=== PATIENT | male | born 1975 | race Caucasian/White ===

== ENCOUNTER 2020-02-08 10:01 | Emergency (ER) | payer BC ==
[~2020-02-08] VITALS: Ht 167.6 cm; Wt 99.3 kg
[2020-02-08 10:16] VITALS: Ht 167.6 cm; Wt 99.3 kg
[2020-02-08 12:50] VITALS: BP 133/86
== END 2020-02-08 12:50 | disposition home or self-care (01) ==
LOC: ED 10:01
DX: S46.911A Strain of unspecified muscle, fascia and tendon at shoulder and upper arm level, right arm, initial encounter (principal); X50.9XXA Other and unspecified overexertion or strenuous movements or postures, initial encounter; Y93.89 Activity, other specified; Y92.89 Other specified places as the place of occurrence of the external cause; Y99.8 Other external cause status
CPT/HCPCS: J1885

== ENCOUNTER 2020-02-09 20:42 | Inpatient (IN) | payer BC ==
[~2020-02-09] VITALS: Ht 167.6 cm; Wt 100.0 kg
[2020-02-09 21:25] VITALS: Ht 167.6 cm; Wt 100.0 kg
--- NOTE | 2020-02-09 22:58 | NUR ---
PATIENT ARRIVED TO ED ROOM ORTHO FROM TRIAGE FOR C/O FEVER AND RIGHT SHOULDER PAIN. PATIENT SAID THAT HE WAS "HERE YESTERDAY FOR THE SAME ISSUE." PATIENT EXPLAINED THAT HE WAS STILL IN PERSISTENT PAIN 10/10 IN RIGHT SHOULDER. PATIENT DENIES SHORTNESS OF BREATH OR DIZZINESS. DR. RANGEL WAS AT THE BEDSIDE TO MSE PATIENT. WILL CONTINUE TO MONITOR. CALL LIGHT WITHIN REACH.
[2020-02-09 23:16] LABS: RED CELL DISTRIBUTION WIDTH 12.3 % (11.5-14.5)
[2020-02-09 23:18] LABS: BASOPHIL % 0 % (0-2); PLATELET COUNT 129 x10^3mcL (130-400)
--- NOTE | 2020-02-09 23:36 | NUR ---
PATIENT EXPLAINED THAT HE WAS AT WORK WHEN HE DEVELOPED RIGHT SHOULDER PAIN. PATIENT EXPLAINED THAT [place] [facility] [place] "[THEY] SAID THAT IT WAS JUST A SPRAIN, BUT IT DOES NOT FEEL LIKE A SPRAIN SINCE IT CONTINUES TO HURT."
[2020-02-09 23:39] LABS: CALCIUM 8.1 mg/dL (8.5-10.1); CARBON DIOXIDE 25.9 mmol/L (21-32); CHLORIDE SERUM 98 mmol/L (98-107); CREATININE SERUM 0.9 mg/dL (0.7-1.3); GFR1 > 60 mL/min; GLUCOSE SERUM 124 mg/dL (74-106); POTASSIUM SERUM 3.5 mmol/L (3.5-5.1); SODIUM SERUM 133 mmol/L (136-145)
[2020-02-09 23:44] LABS: ALBUMIN 3.5 g/dL (3.4-5.0); ALKALINE PHOSPHATASE 86 U/L (46-116); ALT/SGPT 63 U/L (16-63); AST/SGOT 43 U/L (15-37); BILIRUBIN TOTAL 1.36 mg/dL (0.20-1.00); TOTAL PROTEIN, SERUM 7.4 g/dL (6.4-8.2)
[2020-02-09 23:59] LABS: C REACTIVE PROTEIN 22.7 mg/dL (<=0.9)
[2020-02-10 00:09] LABS: ERYTHROCYTE SED RATE 48 mm/hr (0-15)
[2020-02-10 03:22] LABS: UA SPECIFIC GRAVITY 1.015 (1.005-1.035); microscopic required? YES; urine erythrocyte 1+ (NEGATIVE)
--- NOTE | 2020-02-10 03:50 | NUR ---
PATIENT RESTING AT THE MOMENT. PATIENT WAS ABLE TO TOLERATE CT SCAN RIGHT SHOULDER EARLIER WITH FENTANYL X1 ADMINISTERED. VITAL SIGNS STABLE. TEMPERATURE SLIGHTLY ELEVATED. COOLING MEASURES PROVIDED.
--- NOTE | 2020-02-10 04:06 | NUR ---
PATIENT C/O HEADACHE. DR. WRIGHT MADE AWARE. WILL CONTINUE TO MONITOR.
--- NOTE | 2020-02-10 06:09 | NUR ---
PATIENT ORAL TEMPERATURE [address] RANGEL MADE AWARE. NEW ORDERS FOR TYLENOL PO TO BE NOTED AND CARRIED OUT.
--- NOTE | 2020-02-10 07:36 | NUR ---
REPORT GIVEN TO YUE MONSIVAIS FOR CONTINUITY OF CARE. PATIENT IN STABLE CONDITION. PILLOWS GIVEN AND REPOSITIONED PATIENT. PATIENT HAS ANTIBIOTIC RUNNING ORDERED. PATIENT AWARE OF BEING ADMITTED TO THE HOSPITAL FOR FURTHER EVALUATION AND TREATMENTS.
--- NOTE | 2020-02-10 07:45 | NUR ---
PT SITTIN IN POSTION OF COMFORT. PT DENIES ANY PAIN AT THIS TIME. PT IS AAOX4, NO DISTRESS NOTED, RESP E/U. LUNG CTA, IV ANTIBIOTICS INFUSING. PT ON FULL CM, NSR NOTED. WILL CONT TO MONITOR.
--- NOTE | 2020-02-10 09:31 | NUR ---
SPOKE WITH RADIOLOGIST DR WHARTON REGARDING ORDER FOR "C/F ASPIRATION RIGHT SHOULDER." PLACED CALL TO DR Derrick SHERMAN FOR DR Alva, BUT PER [facility] HE IS NOT FOLDER TAPER OPERATOR AND HAS NOT SEEN THE PATIENT. SPOKE WITH DR BURROUGHS IN ER WHO REQUESTED THE ORDERED ASPIRATION BE CANCELLED. AWAITING ADMITTING PHYSICIAN TO DETERMINE PLAN OF CARE MOVING FORWARD. NOTIFIED [facility] DR Alva AND DR Brain OVALLES.
--- NOTE | 2020-02-10 10:00 | NUR ---
PT REPORTS GENERALIZED HEADACHE AT THIS TIME. STATED 11/05 PAIN. PT IS AAOX4, NO DISTRESS NOTED, RESP E/U.
--- NOTE | 2020-02-10 11:30 | NUR ---
PT AMBULATED TO RESTROOM AND BACK TO [facility] WITH A STEADY GAIT WIHOUT INCIDIENT.
--- NOTE | 2020-02-10 12:06 | NUR ---
AT THE BEDSIDE.
--- NOTE | 2020-02-10 12:14 | NUR ---
PT REPORTED 8/10 BACK/RIGHT SHOULDER PAIN AT THIS TIME. MEDICATED PT PER MD ORDERS, SEE EMAR. PT VERABLIZED UNDERSTANDING OF MEDICATION TEACHING.
--- NOTE | 2020-02-10 12:50 | NUR ---
DROPPED OFF PT'S CELL PHONE CHARGE TO ME IN THE LOBBY. GAVE EARTH SCIENCE LABORATORY TECHNICIAN TO THE PT.
--- NOTE | 2020-02-10 13:00 | NUR ---
PT REPORTS IMPROVED BACK/RIGHT SHOULDER PAIN, STATED PAIN IS 6/10 AT THIS TIME.
--- NOTE | 2020-02-10 13:55 | NUR ---
PT AMBULATED TO RESTROOM AND BACK TO [facility] WITH A STEADY GAIT.
--- NOTE | 2020-02-10 15:41 | NUR ---
PT IN POSITION OF COMFORT IN ER CATHY LAYIN IN [place]'S, POSITIONED PILLOWS UNDER PT FOR COMFORT. PT HAS NO COMPLAINTS AT THIS TIME. PT IS AAOX4, NO DISTRESS NOTED, RESP E/U, SKIN INTACT PINK WARM AND DRY. IV FLUSHED AND PATENT, NO INFILTRATION OR PAIN NOTED AT THIS TIME. WILL CONT TO MONIOTR.
--- NOTE | 2020-02-10 18:25 | NUR ---
MEDICATED WITH TYLENOL PO PER MD ORDERS, SEE EMAR. FOR FEVER 101.1 ORALLY. WILL REASSES.
--- NOTE | 2020-02-10 18:35 | NUR ---
SURGEON AT THE BEDSIDE DISCUSSING PLAN OF CARE TO PATIENT. PER SURGEON DR SALOMON, VERBAL OK FOR PT OK TO EAT UNTIL MIDNIGHT TONIGHT.
--- NOTE | 2020-02-10 18:42 | NUR ---
REPORT GIVEN TO SOPHY TURNER ON [facility] WHO WILL ASSUME FURTHER CARE OF THIS PT.
--- NOTE | 2020-02-10 18:55 | NUR ---
RECEIVED PT FROM ED VIA CATHY, CAME IN DUE TO RIGHT SHOULDER PAIN X3 DAYS. AAOX4. C/O 5/10 HEADACHE. DENIES DIZZINESS. ABLE TO FOLLOW COMMANDS. NO SOB NOTED, LUNG SOUNDS CTA, O2 SAT=98%. DENIES CHEST PAIN/PRESSURE. DENIES ABDOMINAL DISCOMFORT. LIMITED ROM ON RUE. NOTED RIGHT SHOULDER SWELLING, WARM TO TOUCH, BUT NO ERYTHEMA/DRAINAGE. STATED THAT HE HAS 10/10 PAIN ON THE RIGHT SHOULDER WORSE ON MOVEMENT. RECEIVED PT FROM ED W/ VANCOMYCIN ONGOING. SIDE RAILS UPX2. CALL LIGHT ON REACH. ENDORSED TO INCOMING NURSE JEY FOR CONTINUITY OF CARE
--- NOTE | 2020-02-10 19:15 | NUR ---
PT RECEIVED FROM RESOURCE NURSE. PT A/O X4, ABLE TO MAKE NEEDS KNOWN. MED-SURG, DENIES ANY CP/PRESSURE. PULSES PALPABLE, RT SHOULDER SWELLING NOTED. BREATHING IS EVEN AND UNLABORED ON RA, NO RESP DISTRESS NOTED. ABD SOFT AND ROUND, DENIES ANY N/V. VOIDS FREELY, URINALY AT BEDSIDE. PT NOTED W/ RT SHOULDER WEAKNESS. SKIN IS WARM AND DRY, INTACT. PT REPORTS MILD HEADACHE AND RT SHOULDER PAIN. IV TO LAC, PATENT AND INTACT, SITE WNL. PT WILL BE NPO AFTER MIDNIGHT FOR POSSIBLE PROCEDURE. NO ACUTE DISTRSES NOTED. BED IN LOWEST SETTING, SIDE RAILS UP X2, CALL LIGHT WITHIN REACH. WILL CONT TO MONITOR.
[2020-02-10 19:19] VITALS: BP 142/78
--- NOTE | 2020-02-10 21:10 | NUR ---
PT C/O 5/10 RIGHT SHOULDER AND HEADACHE PAIN, PRN NORCO GIVEN PER EMAR. REASSESSED TEMP AFTER PRN TYLENOL GIVEN IN ED-100.0, COOLING MEASURES MAINTAINED. NO ACUTE DISTRESS NOTED. WILL CONT TO MONITOR.
[2020-02-11 04:52] VITALS: BP 124/74
--- NOTE | 2020-02-11 06:01 | NUR ---
CARE ASSUMED FROM YUE KHANNA. PT RESTING COMFORTABLY IN BED WITH EYES CLOSED. EVEN AND UNLABORED RESPIRATIONS ON RA. MEDSURG PT. IV PATENT AND INTACT RUNNING ANTIBIOTICS PER EMAR. NPO EXCEPT MEDICATIONS IN PLACE. BED IN LOWEST POSITION. SIDE RAILS UPX2. CALL LIGHT WITHIN REACH. WILL CONTINUE TO MONITOR.
--- NOTE | 2020-02-11 06:01 | NUR ---
PT'S TEMP-102, PRN TYLENOL GIVEN PER EMAR. NO ACUTE DISTRESS NOTED. CONT OF CARE GIVEN TO CHRIS TURNER. ALL QUESTIONS AND CONCERNS ADDRESSED.
--- NOTE | 2020-02-11 07:18 | NUR ---
CARE ENDORSED TO DAYSHIFT RN. PT RESTING COMFORTABLY IN BED WITH EYES CLOSED. NO ACUTE DISTRESS NOTED. IVPB RUNNING PER EMAR. ALL QUESTIONS AND CONCERNED ANSWERED.
[2020-02-11 07:30] LABS: BASOPHIL % 0.3 % (0-2); PLATELET COUNT 141 x10^3mcL (130-400); RED CELL DISTRIBUTION WIDTH 12.1 % (11.5-14.5)
[2020-02-11 07:54] LABS: ALKALINE PHOSPHATASE 110 U/L (46-116); ALT/SGPT 66 U/L (16-63); AST/SGOT 65 U/L (15-37); BILIRUBIN TOTAL 1.4 mg/dL (0.20-1.00); CALCIUM 7.9 mg/dL (8.5-10.1); CARBON DIOXIDE 28.6 mmol/L (21-32); CHLORIDE SERUM 98 mmol/L (98-107); CREATININE SERUM 0.9 mg/dL (0.7-1.3); GFR1 > 60 mL/min; GLUCOSE SERUM 106 mg/dL (74-106); POTASSIUM SERUM 3.4 mmol/L (3.5-5.1); SODIUM SERUM 135 mmol/L (136-145); TOTAL PROTEIN, SERUM 6.7 g/dL (6.4-8.2)
[2020-02-11 07:59] LABS: ALBUMIN 2.9 g/dL (3.4-5.0)
--- NOTE | 2020-02-11 08:16 | NUR ---
RECEIVED IN NO ACUTE DISTRESS, AWAKE AND ALERT. VS WNL/ NO C/O PAIN AT THIS TIME. CALL LIGHT WITHIN REACH. WILL CONTINUE WITH PLAN OF CARE
[2020-02-11 09:42] VITALS: BP 111/62
--- NOTE | 2020-02-11 12:58 | NUR ---
PT C/O HEADACHE 05/07 MEDICATED WITH NORCO
--- NOTE | 2020-02-11 14:11 | NUR ---
PT LEFT TO OR IN NO ACUTE DISTRESS. ALERT AND ORIENTED. NO C/O PAIN AT THIS TIME. NO CONSENT YET, PT WOULD LIKE TO TALK TO SURGEON FIRST.
--- NOTE | 2020-02-11 17:14 | NUR ---
P.T. NOTES PER SARAH, OUT-PATIENT RN (JEANNETTE) WILL REQUEST P.T. ORDER FOR PATIENT, NO P.T. ORDER YET; CONFIRMED W/ CAMILA RN (SHRAVAN); Pt STILL IN O.R.
--- NOTE | 2020-02-11 17:50 | NUR ---
PT BACK FROM OR IN NO ACUTE DISTRESS. AWAKE, ALERT AND ORIENTED. VS WNL. NO C/O PAIN AT THIS TIME. INCISION SITE WITH DRESSING INTACT. NO BLEEDING OR DRAINAGE NOTED. RT ARM WITH SLIN IN PLACE. WILL CONTINUE TO MONITOR.
[2020-02-11 17:59] VITALS: BP 136/67
[2020-02-11 20:46] VITALS: BP 121/71
[2020-02-12 00:50] VITALS: BP 121/75
--- NOTE | 2020-02-12 01:29 | NUR ---
@ 1945 A/A/O X4.DENIES ANY DISCOMFORT @ THIS TIME.DENIES SOB.AMBULATORY. VOIDING FREELY THRU THE URINAL.RIGHT SHOULDER DRESSING D/I & SLING IN PLACE. IVF INFUSING WELL @ KVO RATE.INSTRUCTED TO USE CALL LIGHT NEEDED;WITHIN REACH.
--- NOTE | 2020-02-12 01:38 | NUR ---
@2000 AFEBRILE.V/S STABLE. O2 SAT ON RA 96%.
--- NOTE | 2020-02-12 01:39 | NUR ---
@ 2100 DUE MED ADM.
--- NOTE | 2020-02-12 01:39 | NUR ---
@ 0045 C/O H/A.SCALE 04/07.TEMP.100.9.TYLENOL PO ADM. TORADOL IV ADM.
--- NOTE | 2020-02-12 01:45 | NUR ---
FOUND RESTING COMFORTABLY POST TYLENOL.IVF INFUSING WELL.CALL LIGHT WITHIN REACH.
--- NOTE | 2020-02-12 04:11 | NUR ---
@ 0400 RESTING COMFORTABLY IN NO ACUTE DISTRESS.RIGHT ARM SLING IN PLACE. RIGHT SHOULDER SUPPORTED WITH 1 PILLOW.
[2020-02-12 07:57] LABS: ALKALINE PHOSPHATASE 145 U/L (46-116); ALT/SGPT 78 U/L (16-63); AST/SGOT 65 U/L (15-37); BILIRUBIN TOTAL 0.8 mg/dL (0.20-1.00); CALCIUM 8.2 mg/dL (8.5-10.1); CARBON DIOXIDE 29.3 mmol/L (21-32); CHLORIDE SERUM 104 mmol/L (98-107); GFR1 > 60 mL/min; GLUCOSE SERUM 116 mg/dL (74-106); POTASSIUM SERUM 3.1 mmol/L (3.5-5.1); SODIUM SERUM 143 mmol/L (136-145); TOTAL PROTEIN, SERUM 6.6 g/dL (6.4-8.2)
[2020-02-12 07:58] LABS: ALBUMIN 2.8 g/dL (3.4-5.0)
[2020-02-12 08:00] VITALS: BP 110/70
[2020-02-12 08:11] LABS: PLATELET COUNT 155 x10^3mcL (130-400); RED CELL DISTRIBUTION WIDTH 12.5 % (11.5-14.5)
[2020-02-12 11:55] LABS: SEGMENTED NEUTROPHILS 72 % (37-75)
[2020-02-12 11:56] LABS: BAND NEUTROPHIL 0 % (0-10); MONOCYTE 10 % (0-7); rbc morphology (normal/abnorm) NORMAL (NORMAL)
--- NOTE | 2020-02-12 19:30 | NUR ---
RECEIVED PT AT THIS TIME FROM AM NURSE. PT IN BED AWAKE AND WATCHING TELEVISION. AA/O X 4, ABLE TO MAKE NEEDS KNOWN, NO FACIAL DROOP, CLEAR SPEECH. DENIES HEADACHE/ DENIES DIZZINESS. PT IS MED SURG, DENIES CHEST PAIN/ CHEST PRESSURE. PULSE PALPABLE, NO EDEMA. LUNG SOUNDS CTA, PT ON ROOM AIR. DENIES SOB. NO RESPIRATORY DISTRESS AT THIS TIME. ACTIVE BS X 4 QUADS, ABD SOFT AND NON DISTENDED/ NON TENDER. PT VOIDS USING URINAL. IV TO LAC INTACT, FLUSHING WELL, NO ERYTHEMA, NO INFILTRATION. RIGHT SHOULDER INCISION WITH DRSG C/D/I. PT STATES PAIN IN SHOULDER, DEEP BREATHING TECHNIQUES AND RE-POSITIONING ENCOURAGED. NEXT DOSE OF PAIN MEDICATION AVAILABLE AT 2030. PT VERBALIZED UNDERSTANDING AND WILL WAIT FOR PAIN MEDICATION. PAIN LEVEL 4/10 PER PATIENT. CALL BUTTON WITHIN REACH, WILL CONTINUE TO MONITOR.
[2020-02-12 19:59] VITALS: BP 99/60
--- NOTE | 2020-02-12 21:20 | NUR ---
PT COMPLAINED OF RIGHT SHOULDER PAIN. NON-PHARMACOLOGICAL INTERVENTIONS INEFFECTIVE, PRM MEDICATION GIVEN PER ORDER PER PATIENT REQUEST. ALL NEEDS MET AT THIS TIME. RIGHT SHOULDER DRSG C/D/I, ARM IN SLING. NO OTHER CONCERNS AT THIS TIME. CALL BUTTON WITHIN REACH, WILL CONTINUE TO MONITOR.
--- NOTE | 2020-02-12 21:35 | NUR ---
DR. MADDEN CALLED AND STATED TO PUT AN ORDER FOR THE COVID-19 TEST. ORDER ENTERED INTO SYSTEM. SWAB WILL BE COMPLETED. WILL CONTINUE TO MONITOR.
--- NOTE | 2020-02-12 23:30 | NUR ---
POTASSIUM 3.1. CAR CARDER DOCTOR PAGED. SPOKE WITH DR. ALEXANDER, RECEIVED ORDER FOR MEDICATION 40 KCL PO, ONE TIME. WILL CARRY OUT ORDER.
--- NOTE | 2020-02-12 23:59 | NUR ---
PT AWAKE IN BED, RESTING COMFORTABLY. PT DENIES PAIN AT THIS TIME. NO SOB, NO RESPIRATORY DISTRESS. IV ANTIBIOTICS INFUSING WELL TO IV SITE. CALL LIGHT WITHIN REACH, WILL CONTINUE TO MONITOR.
--- NOTE | 2020-02-13 01:02 | NUR ---
STEAMBOAT INSPECTOR DOCTOR CATHERINE MADE AWARE THAT PT IS BEING SWABBED FOR COVID-19 AND BEING TRANSFERED TO [facility] BED FOR PUI STATUS. PT MADE AWARE. COVID-19 SWAB COMPLETED. PT COMPLAINED OF INABILITY TO SLEEP, CALM AND QUIET ENVIRONMENT INEFFECTIVE. PRN AMBIEN GIVEN PER ORDER. MASK PROVIDED TO PT FOR ROOM TRANSFER. REPORT GIVEN TO [facility] NURSE. PT SAFELY TRANSFERED TO NEW ROOM, ALL CONCERNS ADDRESSED. NO COMPLAINTS OF PAIN. CARE ENDORSE TO 2 [facility] NURSE.
[2020-02-13 01:18] VITALS: BP 110/69
--- NOTE | 2020-02-13 01:30 | NUR ---
Pt. received from 2N nurse, report given, and accepted pt. at this time. Pt. recently swabbed for COVID d/t spiking fever. Pt. at this time a/o x4, able to make simple needs known, able to follow commands, will cont. to monitor. pt.
[2020-02-13 05:00] VITALS: BP 119/82
--- NOTE | 2020-02-13 06:26 | NUR ---
Pt. noted to be resting throughout shift, able to make needs known. Pt. c/o pain in R shoulder, gave Toradol as ordered. Pt. asking why med wasn't given at around 0300 in the AM, educated pt. it is a PRN medication, he needs to ask. Pt. states "i was knocked out," and verbalized understanding. Otherwise, pt. stable, will cont. to monitor pt. and endorse care to next shift RN.
--- NOTE | 2020-02-13 07:10 | NUR ---
RECEIVED PT FROM NAT TURNER. PT AAOX4. PT MED SURG STATUS. DENIES CHEST PAIN. PT ON RA W/ NO SOB OR DISTRESS NOTED. ALL QUESTIONS AND CONCERNS ADDRESSED. ALL NEEDS MET AT THIS TIME. NO PAIN AT THIS TIME. IV TO RAC. IV CDI AND PATENT. PT IS STABLE AT THIS TIME. ALL SAFETY AND COMFORT MEASURES IN PLACE. BED IN LOW POSITION, 2 SIDE RAILS UP. CALL LIGHT WITH IN REACH. ALL QUESTIONS AND CONCERNS ADDRESSED. WILL CONTINUE TO MONITOR PT.
[2020-02-13 09:28] VITALS: BP 116/68
--- NOTE | 2020-02-13 12:25 | NUR ---
PT C/O PAIN. PAIN MEDICATION PROVIDED PER EMAR. ALL COMFORT AND SAFETY MEASURES IN PLACE. ALL NEEDS MET AT THIS TIME. WILL CONTINUE TO MONITOR PT.
[2020-02-13 13:00] VITALS: BP 128/87
--- NOTE | 2020-02-13 16:37 | NUR ---
PT REMAINS STABLE AT THIS TIME. NO ACUTE CHANGES TO STATUS. ALL QUESTIONS AND CONCERNS ADDRESSED. ALL NEEDS MET. WILL CONTINUE TO MONITOR PT.
[2020-02-13 17:45] VITALS: BP 123/71
--- NOTE | 2020-02-13 19:10 | NUR ---
RECEIVED PT IN BED, A/A/O X 4, CALM, COOPERATIVE TO CARE; WATCHING TV AT THIS TIME. DENIES CHEST PAIN OR DISCOMFORT AT THIS TIME. NO ACUTE RESPIRATORY DISTRESS NOTED. R SHOULDER SURGICAL WOUND IS COVERED W/ D/D, CDI, DENIES PAIN AT THIS TIME; R SHOULDER SLING IN USE. IV SITE TO [facility] 20G, CDI. SIDE RAILS UP X 2, BED IN LOW POSITION, CALL LIGHT WITHIN REACH. WILL CONTINUE TO MONITOR.
--- NOTE | 2020-02-13 19:50 | NUR ---
REPORT GIVEN TO ELIANA TURNER. PT REMAINED STABLE THROUGHOUT MY SHIFT. ALL QUESTIONS AND CONCERNS ADDRESSED. ALL NEEDS MET AT THIS TIME. ALL CARES ENDORSED TO NIGHT RN.
[2020-02-13 20:42] VITALS: BP 118/64
--- NOTE | 2020-02-13 22:55 | NUR ---
PT C/O CONSTANT SHARP PAIN TO R SHOULDER; D/D REMAINS CDI; PT GIVEN NORCO 5/325MG PO 1 TAB; TURNED OFF LIGHTS TO HELP PT RELAX. WILL CONTINUE TO MONITOR.
--- NOTE | 2020-02-13 23:10 | NUR ---
PT IN BED, A/A/O X 4, WATCHING TV; PT DENIES PAIN OR DISCOMFORT AT THIS TIME. NO ACUTE RESPIRATORY DISTRESS NOTED. R SHOULDER SURGICAL WOUND D/D REMAINS CDI; R SHOULDER SLING IN PLACE. IV SITE TO LFA CDI. SIDE RAILS UP X 2, BED IN LOW POSITION, CALL LIGHT WITHIN REACH. CONTACT/DROPLET PRECAUTION IN PLACE D/T R/O COVID-19. WILL CONTINUE TO MONITOR.
--- NOTE | 2020-02-14 01:26 | NUR ---
ENDORSED PT TO YUE MELGAR.
--- NOTE | 2020-02-14 01:38 | NUR ---
ASSUMED CARE OF PATIENT AT THIS TIME, PATIENT SLEEPING QUIETLY, NO DISTRESS NOTED. WILL CONTINUE TO MONITOR.
--- NOTE | 2020-02-14 03:52 | NUR ---
PATIENTN COMPLAINED OF RT SHOULDER PAIN AND HEADACHE NEDICATED PRN, WILL MONITOR AND REASSESS EFFECTIVENESS.
[2020-02-14 05:04] VITALS: BP 133/75
--- NOTE | 2020-02-14 06:17 | NUR ---
PATIENT HAD A RESTFUL AND QUIET NIGHT STATED, WAS MEDICATED WITH NORCO FOR COMPLAINT OF HEADACHE AND RT SHOULDER PAIN., RECEIVED DESIRED RELIEF. IV SITE NO SIGN OF INFILTRATION. AMBULATORY WITH STEADY GAIT AND ABLE TO PERFORM ADL'S UNASSISTED. RT SHOULDER DRESSING CLEAN DRY AND INTACT, SLING IN USE. SAFETY/FALL PRECAUTIONS MAINTAINED. REMAINED ON DROPLET ISOLATION FOR COVID 19,PROPER PPE WORN PRIOR TO ENTERING ROOM, PRACTICED HAND HYGIENE. WILL ENDORSE CONTINUITY OF CARE TO INCOMING NURSE.
[2020-02-14 07:13] LABS: BASOPHIL % 0.6 % (0-2); PLATELET COUNT 199 x10^3mcL (130-400); RED CELL DISTRIBUTION WIDTH 12.6 % (11.5-14.5)
[2020-02-14 07:18] LABS: CALCIUM 7.8 mg/dL (8.5-10.1); CARBON DIOXIDE 26.3 mmol/L (21-32); CHLORIDE SERUM 105 mmol/L (98-107); CREATININE SERUM 0.8 mg/dL (0.7-1.3); GFR1 > 60 mL/min; GLUCOSE SERUM 82 mg/dL (74-106); POTASSIUM SERUM 3.4 mmol/L (3.5-5.1); SODIUM SERUM 141 mmol/L (136-145)
--- NOTE | 2020-02-14 07:20 | NUR ---
RECEIVED PT FROM TALIA TURNER. PT AAOX4. PT MED SURG STATUS. DENIES CHEST PAIN. PT ON RA W/ NO SOB OR DISTRESS NOTED. ALL QUESTIONS AND CONCERNS ADDRESSED. ALL NEEDS MET AT THIS TIME. NO PAIN AT THIS TIME. IV TO RAC. IV CDI AND PATENT. PT IS STABLE AT THIS TIME. ALL SAFETY AND COMFORT MEASURES IN PLACE. BED IN LOW POSITION, 2 SIDE RAILS UP. CALL LIGHT WITH IN REACH. ALL QUESTIONS AND CONCERNS ADDRESSED. WILL CONTINUE TO MONITOR PT.
--- NOTE | 2020-02-14 07:30 | NUR ---
HANDS OFF REPORT GIVEN TO INCOMING NURSE [place]-YUE.
[2020-02-14 09:20] VITALS: BP 124/85
[2020-02-14 14:04] VITALS: BP 116/71
--- NOTE | 2020-02-14 14:31 | NUR ---
IN TO SEE PT. PT IS STABLE AT THIS TIME W/ NO ACUTE CHANGES TO STATUS. PT DRESSING CHANGED TO RIGHT SHOULDER. MINIMAL DRAINAGE NOTED TO PREVIOUS DRESSING. NEW DRESSING, CDI. ALL QUESTIONS AND CONCERNS ADDRESSED. ALL NEEDS MET AT THIS TIME. WILL CONTINUE TO MONITOR PT.
--- NOTE | 2020-02-14 15:00 | NUR ---
IN TO SEE PT. PT REMAINS STABLE W/ NO ACUTE CHANGES TO STATUS. ALL QUESTIONS AND CONCERNS ADDRESSED. ALL NEEDS MET AT THIS ITME. WILL CONTINUE TO MONITOR PT.
[2020-02-14 17:19] VITALS: BP 119/78
[2020-02-14 17:22] VITALS: BP 116/79
--- NOTE | 2020-02-14 19:15 | NUR ---
REPORT GIVEN TO DARREN TURNER. PT REMAINED STABLE THROUGHOUT MY SHIFT. ALL QUESTIONS AND CONCERNS ADDRESSED. ALL NEEDS MET AT THIS TIME. ALL CARES ENDORSED TO NIGHT RN.
--- NOTE | 2020-02-14 20:16 | NUR ---
RECEIVED PATIENT IN BED AWAKE, ALERT AND ORIENTED WITH NO C/O RT SHOULDER PAIN AT THIS TIME, PATIENT MEEICATED EARLIER BY AM SHIFT. MED SURG PATIENT. BREATHING EASY AND NONLABOR SATTING AT 98% RA. SURGICAL WOUND TO RT SHOULDER INTACT WITH ISLAND DRESSING CDI. IV TO LFA TKO WITH NO REDNESS AND NO SWELLING NOTED TO SITE. WILL CONTINUE TO MONITOR. KEPT ON ISOLATION PRECAUTION FOR PUI PATIENT.
[2020-02-14 21:19] VITALS: BP 120/74
--- NOTE | 2020-02-14 23:29 | NUR ---
C/O RT SHOULDER PAIN AT SCALE OF 8/10 PER PATIENT, NORCO 1 TAB PO GIVEN PRESCRIBED. WILL CONTINUE TO MONITOR.
[2020-02-15 05:04] VITALS: BP 124/79
--- NOTE | 2020-02-15 05:09 | NUR ---
AWAKE THIS TIME C/O RIGHT SHOULDER PAIN AT SCALE OF 8/10 ,NORCO 1 TAB PO GIVEN PRESCRIBED. ALEPT AT LONG INTERVALS, NO SIGNIFICANT CHANGES IN CONDITION NOTED. ARM SLING TO RT SHOULDER IN PLACE.
--- NOTE | 2020-02-15 08:00 | NUR ---
RECEIVED IN NO DISTRESS. AWAKE AND ALERT. IN NO ACUTE DISTRESS. VS WNL. NO C/O PAIN AT THIS TIME. CALL LIGHT WITHIN REACH. WILL CONTINUE WITH PLAN OF CARE.
[2020-02-15 08:57] VITALS: BP 125/76
--- NOTE | 2020-02-15 12:29 | NUR ---
TYLENOL GIVEN FOR MILD DISCOMFORT TO RT SHOULDER WITH FAIR RELIEF. RESTING AT THIS TIME.
[2020-02-15] MEDS ORDERED: TYL325 PO (13:51)
[2020-02-15 14:14] VITALS: BP 125/76
--- NOTE | 2020-02-15 17:11 | NUR ---
C/O PAIN TO RT SHOULDER 12/05. TYLENOL GIVEN.
[2020-02-15 17:25] VITALS: BP 129/72
--- NOTE | 2020-02-15 18:50 | NUR ---
REMAINS IN NO DISTRESS, AWAKE AND ALERT. NO CHANGES IN VS. NO C/O PAIN OR DISCOMFORT. CALL LIGHT WITHIN REACH. WILL BE ENDORSED TO INCOMING SHIFT.
--- NOTE | 2020-02-15 19:35 | NUR ---
AWAKE AND ALERT, ORIENTED TO NAME, PLACE, TIME AND SITUATION. SPEECH CLEAR AND APPROPRIATE. BREATHING EVEN AND UNLABORED ON ROOM AIR. WATCHING TV. ABLE TO REPOSITION SELF IN BED. DRESSING TO RIGHT SHOULDER CDI. PT WEARING RIGHT SHOULDER/ARM SLING. CALL LIGHT WITHIN EASY REACH. HOB ELEVATED 20 DEG.
--- NOTE | 2020-02-15 19:37 | NUR ---
PT HAS 2 COVID TESTS NEGATIVE.
[2020-02-15 20:46] VITALS: BP 121/76
--- NOTE | 2020-02-15 23:09 | NUR ---
PICC LINE NURSE AT BEDSIDE. TIME OUT DONE. MQ=981/78, UT=55, TEMP=97.6, RR=18, O2 SAT=96%, RA.
--- NOTE | 2020-02-15 23:16 | NUR ---
DR. SHERMAN MADE AWARE THAT PATIENT IS HAVING PICC LINE PLACEMENT AT THIS TIME AND PT REQUESTING FOR A DIFFERENT PAIN MEDICATION ASIDE FROM NORCO AND MORPHINE. RECEIVED ORDERS FROM DR. SHERMAN FOR CHEST X-RAY AFTER PICC LINE PLACEMENT AND TRAMADOL 50 MG Q6 PRN NEEDED FOR PAIN. ORDERS WERE CARRIED OUT. INFORMED PRIMARY NURSE YULIET OF THE ABOVE.
--- NOTE | 2020-02-15 23:47 | NUR ---
PICC NURSE INSERTED PICC LINE TO LEFT UPPER ARM. INSPECTOR MACHINE PARTS IN ROOM FOR XRAY TO CONFIRM PLACEMENT. PICC NURSE IN ROOM. PT AWAKE AND ALERT, BREATHING EVEN AND UNLABORED.
[2020-02-16 05:39] VITALS: BP 137/80
--- NOTE | 2020-02-16 06:06 | NUR ---
EYES CLOSED, EASILY AWAKENED. BREATHING EVEN AND UNLABORED ON ROOM AIR. RIGHT SHOULDER/ARM ON SLING. DRESSING TO PICC LINE CDI. CALL LIGHT WITHIN EASY REACH.
--- NOTE | 2020-02-16 07:12 | NUR ---
IN NO ACUTE DISTRESS. ENDORSED TO NURSE BRI
[2020-02-16 07:13] LABS: BASOPHIL % 0.8 % (0-2); PLATELET COUNT 261 x10^3mcL (130-400); RED CELL DISTRIBUTION WIDTH 12.2 % (11.5-14.5)
[2020-02-16 07:27] LABS: CALCIUM 8.2 mg/dL (8.5-10.1); CARBON DIOXIDE 27.5 mmol/L (21-32); CHLORIDE SERUM 107 mmol/L (98-107); CREATININE SERUM 0.7 mg/dL (0.7-1.3); GFR1 > 60 mL/min; GLUCOSE SERUM 83 mg/dL (74-106); POTASSIUM SERUM 3.8 mmol/L (3.5-5.1); SODIUM SERUM 143 mmol/L (136-145)
--- NOTE | 2020-02-16 08:00 | NUR ---
RECEIVED PATIENT ALERT AND ORIENTED X 4, V/S STABLE, DENIES PAIN OR DISCOMFORT. S/P RT. SHOULDER DEBRIDEMENT ON 02/09, SITE COVERED WITH DRESSING CDI. PT. WEARING RT. SHOULDER/ARM SLING, SKIN WARM TO TOUCH, CAP. REFILL < 2 SECS. ABLE TO MOVE FINGERS WITHOUT DIFFICULTY. ELEVATED RT. ARM WIHT PILLOW WHILE IN BED, PATIENT JONATHAN. WELL.
[2020-02-16 08:28] VITALS: BP 125/81
[2020-02-16 12:07] VITALS: BP 126/82
--- NOTE | 2020-02-16 13:17 | NUR ---
ENCOURGED AND ASSISTED PAITENT OOB AND AMBULATED IN THE ROOM, PATIENT JONATHAN. WELL.
[2020-02-16 15:55] VITALS: BP 122/902
[2020-02-16] MEDS ORDERED: CEFTRIAXON2 GM/50 ML IV (16:04)
--- NOTE | 2020-02-16 17:20 | NUR ---
PM DOSE OF ANCEF COMPLETED, HL REMOVED TO LT. HAND WITH CATHETER INTACT, IV SITE SKIN WNL. NO REDNESS OR SWELLON NOTED. DISCHARGE INSTRUCTIONS REVIEWED WITH PATIENT, INCLUDED PICC SITE CARE, SURGICAL SITE CARE, PHYSICIAN FOLLOW UP, HH FOLLOW UP, MEDICATIONS AND HOME ABX. PATIENT VERBALIZED UNDERSTADNING.
--- NOTE | 2020-02-16 17:30 | NUR ---
DISCHARGED PATIENT VIA PRIVATE AUTO AT THIS TIME WITH STABLE CONDITION.
== END 2020-02-16 17:35 | disposition home health service (06) | DRG 493 ==
LOC: ED 20:42 → MU 02-10 07:23
PROVIDERS: Emergency Medicine; Internal Medicine; Orthopaedic Surgery; ADMIT Internal Medicine Pulmonary Disease; ATTEND Internal Medicine Pulmonary Disease
PROC: 0RJJ4ZZ Inspection of Right Shoulder Joint, Percutaneous Endoscopic Approach (ICD-10-PCS; 2020-02-11)
PROC: 0PBF0ZZ Excision of Right Humeral Shaft, Open Approach (ICD-10-PCS; principal; 2020-02-11 15:30)
PROC: 02HV33Z Insertion of Infusion Device into Superior Vena Cava, Percutaneous Approach (ICD-10-PCS; 2020-02-15)
PROC: B548ZZA Ultrasonography of Superior Vena Cava, Guidance (ICD-10-PCS; 2020-02-15)
DX: M00.011 Staphylococcal arthritis, right shoulder (principal); M86.8X1 Other osteomyelitis, shoulder; Z20.828 Contact with and (suspected) exposure to other viral communicable diseases; B95.61 Methicillin susceptible Staphylococcus aureus infection as the cause of diseases classified elsewhere
CPT/HCPCS: G0378; J0171; J0295; J0456; J0690; J0692; J0696; J1644; J1885; J2270; J2405; J2543; J2704; J3010; J3370; J3490; J7030; J7040; J7050; J7060; J7120; Q0092; Q9967; U0003-CS

== ENCOUNTER 2020-06-17 13:14 | Emergency (ER) | payer BC, SELFPAY ==
[~2020-06-17] VITALS: Ht 167.6 cm; Wt 90.7 kg
[~2020-06-17 13:14] MED LIST: CEFTRIAXON2 GM/50 ML IV; TYL325 PO
[2020-06-17 13:18] VITALS: Ht 167.6 cm; Wt 90.7 kg
[2020-06-17 14:04] VITALS: BP 132/67
== END 2020-06-17 14:04 | disposition home or self-care (01) ==
LOC: ED 13:14
DX: M54.5 Low back pain (principal); Z20.828 Contact with and (suspected) exposure to other viral communicable diseases